=== PATIENT | female | born 1940 | race African-American/Black ===

== ENCOUNTER 2020-02-02 17:41 | Emergency (ER) | payer OTHER ==
[~2020-02-02] VITALS: Ht 165.1 cm; Wt 72.0 kg
[2020-02-02 19:35] LABS: BASOPHILS % 0.5 % (0.0-2.0); EOSINOPHILS % 0.5 % (0.0-5.0); HEMATOCRIT. 41.5 % (36.0-48.0); LYMPHOCYTES % 13.4 % (20.0-50.0); MEAN CORPUSCULAR HEMOGLOBIN 29.7 pg (28.0-32.0); MEAN CORPUSCULAR VOLUME 88.4 fL (81.0-99.0); MEAN PLATELET VOLUME 6.9 fl (7.4-10.4); MONOCYTES % 5.5 % (2.0-8.0); NEUTROPHILS % 80.1 % (40.0-76.0); PLATELET 241 x1000/uL (130-400); RED CELL DISTRIBUTION WIDTH 14.7 % (11.6-14.6)
[2020-02-02 19:40] LABS: CHLORIDE 108 mEq/L (98-107)
[2020-02-02] MEDS ORDERED: METHOCARBAMOL 750MG TABLET PO STA (20:02)
[2020-02-02] MEDS ORDERED: ASPIRIN 81MG TABLET PO ONE (20:15)
[2020-02-02] MEDS ORDERED: KETOROLAC 15MG/ML VIAL IV ONE (20:15)
[2020-02-02] MEDS ORDERED: HYDROCODONE/ACETAMINOPHEN 5/325MG TABLET PO ONE (20:15)
[2020-02-03 01:52] VITALS: BP 135/66
== END 2020-02-03 01:54 | disposition home or self-care (01) ==
LOC: ER 17:41
DX: M54.2 Cervicalgia (principal); I10 Essential (primary) hypertension; Z86.73 Personal history of transient ischemic attack (TIA), and cerebral infarction without residual deficits; M79.602 Pain in left arm
CPT/HCPCS: 36415; 71045; 72125; 80053; 83880; 84484; 85025; 93005; 96374; 99285; J1885